=== PATIENT | female | born 1965 | race Caucasian/White ===

== ENCOUNTER 2018-03-11 08:28 | Emergency (ER) | payer OTHER ==
[~2018-03-11] VITALS: Ht 165.1 cm; Wt 90.7 kg
[2018-03-11] MEDS ORDERED: TETANUS/DIPHTHERIA TOX ADULT 0.5 ML SYR IM ONE (08:45)
== END 2018-03-11 08:50 | disposition home or self-care (01) ==
LOC: FSED 08:28
DX: L03.116 Cellulitis of left lower limb (principal)
CPT/HCPCS: 90471; 90714; 99283